=== PATIENT | male | born 1975 | race Caucasian/White ===

== ENCOUNTER 2017-02-14 19:31 | Emergency (ER) | payer OTHER ==
[~2017-02-14] VITALS: Ht 182.9 cm; Wt 83.1 kg
[2017-02-14] MEDS ORDERED: PEPT262S PO (19:49)
[2017-02-14] MEDS ORDERED: ASPIRIN 81 MG CHEW TABLET PO ONE (20:00)
[2017-02-14 20:18] LABS: BASO # 0.1 K/mm3 (0.0-0.2); BASO % 1.5 % (0.0-1.0); EOS # 0.6 K/mm3 (0.0-0.50); EOS % 9.3 % (0.0-3.0); LARGE UNSTAINED CELL # 0.2 K/mm3 (0.0-0.4); LARGE UNSTAINED CELL % 3.1 % (0.0-4.0); LYMPH # 2.1 K/mm3 (1.5-4.5); LYMPH % 29.8 % (24.0-44.0); MEAN CORPUSCULAR HEMOGLOBIN 32.4 pg (27.0-33.0); MEAN CORPUSCULAR HGB CONC 34.1 g/dl (32.0-36.5); MEAN CORPUSCULAR VOLUME 94.8 fl (80.0-96.0); MONO # 0.5 K/mm3 (0.0-0.8); MONO % 6.5 % (0.0-5.0); NEUTROPHILS # 3.5 K/mm3 (1.8-7.7); NEUTROPHILS % 49.8 % (36.0-66.0); PLATELET COUNT, AUTOMATED 225 k/mm3 (150-450); RED CELL DISTRIBUTION WIDTH 12.5 % (11.5-14.5); WHITE BLOOD COUNT 6.9 K/mm3 (4.0-10.0)
[2017-02-14] MEDS ORDERED: GI COCKTAIL 50ML BTL(HYOSCYAMINE/MAALOX/LIDOCAINE VISCOUS)(1:3:1) PO ONE (20:30)
[2017-02-14 20:40] LABS: ANION GAP 6 MEQ/L (8-16); BLOOD UREA NITROGEN 14 MG/DL (7-18); CALCIUM LEVEL 9.3 MG/DL (8.5-10.1); CARBON DIOXIDE LEVEL 29 MEQ/L (21-32); CHLORIDE LEVEL 105 MEQ/L (98-107); CREATININE FOR GFR 1.27 MG/DL (0.70-1.30); GLOMERULAR FILTRATION RATE > 60.0 (>60); GLUCOSE, FASTING 109 MG/DL (70-105); SODIUM LEVEL 140 MEQ/L (136-145)
[2017-02-14 22:44] VITALS: BP 129/64
--- NOTE | 2017-02-15 05:46 | ECGEPIP ---
Stationary ECG Study [facility] - ED Test Date: 2017-02-14 Pat Name: ZENA CABRERA Department: Room: - Gender: M Program Dir: denny : 1975 Requested By: WON Becerra Order Number: [id number] Reading MD: Chandrakant Crowell Measurements Intervals Angelica Rate: 53 P: -1 ID: [id number] QRS: 39 QRSD: 92 T: 30 QT: 401 QTc: 379 Interpretive Statements SINUS BRADYCARDIA INC. RBBB NO PRIORS Electronically Signed On 02-15-2017 5:45:50 EDT by Chandrakant Crowell
--- NOTE | 2017-02-15 12:12 | REP ---
Portable chest, single AP view, the patient semi upright, 02/14/2017, 10:25 p.m.: The lung fleming are clear. The cardiac size is normal. The flor, mediastinum, and bony thorax are unremarkable. Impression: Negative portable chest. Signed by Edgard Hernández MD 02/15/2017 07:47 A
== END 2017-02-14 22:47 | disposition home or self-care (01) ==
LOC: M ED 20:38
DX: R07.89 Other chest pain (principal); R00.2 Palpitations

== ENCOUNTER 2019-01-13 12:46 | Day surgery (SDC) | payer OTHER ==
[~2019-01-13] VITALS: Ht 182.9 cm; Wt 97.1 kg
[~2019-01-13 12:46] MED LIST: GUMMCHW PO; OMEG1CAP16 PO; PEPT262S PO; PROT20TA11 PO
[2019-01-13] MEDS ORDERED: NS 1,000 ML IV ONE (13:00)
[2019-01-13] MEDS ORDERED: LIDOCAINE 2% INJ 100 MG/5 ML SDV (FOR ANES.) As Ordered ONE (14:22)
[2019-01-13] MEDS ORDERED: fentaNYL 100 MCG/2 ML INJECTION (J3010) As Ordered ONE (14:22)
[2019-01-13] MEDS ORDERED: PROPOFOL 200 MG/20 ML VIAL As Ordered ONE (14:22)
--- NOTE | 2019-01-13 14:28 | ROOR ---
Patient Name: Tai Pate Procedure Date: 01/13/2019 2:15 PM Date of : 1975 Age: 43 Room: [facility] Gender: Male Note Status: Finalized Procedure: Upper GI endoscopy Indications: Dyspepsia, Heartburn, bloating Providers: Srini LEE MD Referring MD: DONTAE DIGGS MD Requesting Provider: Medicines: Monitored Anesthesia Care Complications: No immediate complications. Procedure: Pre-Anesthesia Assessment: - The heart rate, respiratory rate, oxygen saturations, blood pressure, adequacy of pulmonary ventilation, and response to care were monitored throughout the procedure. The Endoscope was introduced through the mouth, and advanced to the second part of duodenum. The upper GI endoscopy was accomplished without difficulty. The patient tolerated the procedure well. Findings: The esophagus was normal. The stomach was normal. The examined duodenum was normal. Impression: - Normal esophagus. - Normal stomach. - Normal examined duodenum. - No specimens collected. Recommendation: - Observe patient's clinical course. - Follow an antireflux regimen. - Continue present medications. Srini Lee MD Srini LEE MD 01/13/2019 2:28:03 PM Electronically signed by Srini LEE MD Number of Addenda: 0 Note Initiated On: 01/13/2019 2:15 PM Estimated Blood Loss: Estimated blood loss: none.
--- NOTE | 2019-01-13 14:40 | ROOR ---
Patient Name: Tai Pate Procedure Date: 01/13/2019 2:16 PM Date of : 1975 Age: 43 Room: [facility] Gender: Male Note Status: Finalized Procedure: Colonoscopy Indications: Abdominal pain, Family history of colon cancer in multiple second-degree relatives Providers: Srini LEE MD Referring MD: ODNTAE DIGGS MD Requesting Provider: Medicines: Monitored Anesthesia Care Complications: No immediate complications. Procedure: Pre-Anesthesia Assessment: - The heart rate, respiratory rate, oxygen saturations, blood pressure, adequacy of pulmonary ventilation, and response to care were monitored throughout the procedure. The Colonoscope was introduced through the anus and advanced to 10 cm into the ileum. The colonoscopy was performed without difficulty. The patient tolerated the procedure well. The quality of the bowel preparation was good. Findings: The perianal and digital rectal examinations were normal. (Exam: Complete, Prep: Good or Excellent.) The entire examined colon appeared normal on direct and retroflexion views. The terminal ileum appeared normal. Impression: - (Exam: Complete, Prep: Good or Excellent.) - The entire colon is normal on direct and retroflexion views. - The terminal ileum is normal. - No specimens collected. Recommendation: - Repeat colonoscopy in 5 years for screening purposes. Srini Lee MD Srini ELE MD 01/13/2019 2:40:00 PM Electronically signed by Srini LEE MD Number of Addenda: 0 Note Initiated On: 01/13/2019 2:16 PM Estimated Blood Loss: Estimated blood loss: none.
[2019-01-13 15:00] VITALS: BP 104/55
== END 2019-01-13 15:12 | disposition home or self-care (01) ==
LOC: M OPP 12:46
PROVIDERS: ATTEND Internal Medicine Gastroenterology
DX: R10.13 Epigastric pain (principal); R12 Heartburn; Z80.0 Family history of malignant neoplasm of digestive organs
CPT/HCPCS: 43235; 45378; J3010

== ENCOUNTER → 2019-10-22 | Outpatient (REF) | payer OTHER | LOC: M SFHCLERA 18:20 | PROVIDERS: ATTEND Physician Assistant | DX: R52 Pain, unspecified (principal) ==

== ENCOUNTER 2024-09-26 08:17 | Day surgery (SDC) | payer OTHER ==
[~2024-09-26] VITALS: Ht 180.3 cm; Wt 88.6 kg
[~2024-09-26 08:17] MED LIST changes: +ASCO500C3 PO; +FENO48TA8 PO; +HYDR-643 PO; +LIDOCAINE 2% 100MG/5ML SDV (FOR ANES.) As Ordered ONE; +OMEGCAP9 PO; +propofoL 200 MG/20 ML VIAL As Ordered ONE
[2024-09-26 09:59] VITALS: BP 112/59; O2SAT 98
== END 2024-09-26 10:00 | disposition home or self-care (01) ==
LOC: M OPP 08:17
PROVIDERS: ATTEND Internal Medicine Gastroenterology
DX: Z12.11 Encounter for screening for malignant neoplasm of colon (principal); K64.8 Other hemorrhoids; Z80.0 Family history of malignant neoplasm of digestive organs